=== PATIENT | female | born 2000 | race Caucasian/White ===

== ENCOUNTER 2020-02-23 11:19 | Emergency (ER) | payer BC ==
[~2020-02-23] VITALS: Ht 152.4 cm; Wt 46.7 kg
[2020-02-23 11:21] VITALS: BP 106/64; Ht 152.4 cm; Wt 46.7 kg
== END 2020-02-23 12:16 | disposition home or self-care (01) ==
LOC: ED 11:19
DX: S60.562A Insect bite (nonvenomous) of left hand, initial encounter (principal); S60.561A Insect bite (nonvenomous) of right hand, initial encounter; W57.XXXA Bitten or stung by nonvenomous insect and other nonvenomous arthropods, initial encounter; Y93.89 Activity, other specified; Y92.89 Other specified places as the place of occurrence of the external cause; Y99.8 Other external cause status